=== PATIENT | female | born 1995 | race Caucasian/White ===

== ENCOUNTER 2017-02-24 19:45 | Outpatient (CLI) | payer OTHER ==
[2017-02-24 20:37] LABS: APPEARANCE,URINE CLEAR; BILIRUBIN,URINE NEGATIVE (NEGATIVE); GLUCOSE, URINE NEGATIVE (NEGATIVE); KETONES,URINE NEGATIVE (NEGATIVE); LEUKOCYTE ESTERASE,URINE NEGATIVE (NEGATIVE); NITRITE,URINE NEGATIVE (NEGATIVE); PROTEIN,URINE NEGATIVE (NEGATIVE); URINE SPECIFIC GRAVITY 1.012; UROBILINOGEN,URINE NEGATIVE mg/dL (<2.0)
[2017-02-24 21:13] LABS: URINE BARBITURATES SCREEN NEGATIVE; URINE METHADONE SCREEN NEGATIVE; URINE OPIATES LOW NEGATIVE; URINE PHENCYCLIDINE SCREEN NEGATIVE
--- NOTE | 2017-02-24 22:43 | Non Stress Test Report ---
Non Stress Test Datetime Report Generated by CPN: 02/24/2017 22:43 DEMOGRAPHIC EGA NST: 39.3 INDICATION Indication for Study: Ordered by Provider VITAL SIGNS Temperature - NST: 98.0 Pulse - NST: 105 RESP - NST: 14 NBPSYS NST: 143 NBPDIA NST: 81 MONITORING Monitor Explained: Monitor Explained; Test Explained; Patient Verbalized Understanding Time on Monitor: 02/24/2017 20:05 Time off Monitor: 02/24/2017 21:08 NST Duration: 63 NST INTERVENTIONS NST Interventions: PO Hydration Physician Notified NST: Dr Bernabe BABY A: [id number] BABY A Movement : Present Contraction Frequency : irreg FHR Baseline : 160 Accelerations : 15X15 Decelerations : None Variability : Moderate 6-25bpm NST Review: Meets Criteria for Reactive NST NST Review and Verified By : Paco Martínez RN NST Results: Reactive NST REPORT Report Trigger: Send Report
== END 2017-02-24 22:31 | disposition home or self-care (01) ==
LOC: LC 19:45
PROVIDERS: ATTEND Student in an Organized Health Care Education/Training Program
PROC: 4A1HXCZ Monitoring of Products of Conception, Cardiac Rate, External Approach (ICD-10-PCS; principal; 2017-02-24)
DX: O47.1 False labor at or after 37 completed weeks of gestation (principal); Z3A.39 39 weeks gestation of pregnancy
CPT/HCPCS: 59025; 80307; 81005

== ENCOUNTER 2017-02-25 11:30 | Outpatient (CLI) | payer OTHER ==
[2017-02-25 12:03] LABS: APPEARANCE,URINE SLIGHTLY-CLOUDY; BILIRUBIN,URINE NEGATIVE (NEGATIVE); GLUCOSE, URINE NEGATIVE (NEGATIVE); KETONES,URINE NEGATIVE (NEGATIVE); LEUKOCYTE ESTERASE,URINE NEGATIVE (NEGATIVE); NITRITE,URINE NEGATIVE (NEGATIVE); PROTEIN,URINE NEGATIVE (NEGATIVE); URINE SPECIFIC GRAVITY 1.012; UROBILINOGEN,URINE NEGATIVE mg/dL (<2.0)
[2017-02-25] MEDS ORDERED: HYDROXYZINE PAMOATE 50 MG CAPSULE ONE (12:15)
[2017-02-25 12:33] LABS: URINE BARBITURATES SCREEN NEGATIVE; URINE METHADONE SCREEN NEGATIVE; URINE OPIATES LOW NEGATIVE; URINE PHENCYCLIDINE SCREEN NEGATIVE
== END 2017-02-25 12:20 | disposition home or self-care (01) ==
LOC: LC 11:30
PROVIDERS: ATTEND Obstetrics & Gynecology
PROC: 4A1HXCZ Monitoring of Products of Conception, Cardiac Rate, External Approach (ICD-10-PCS; principal; 2017-02-25)
DX: O47.1 False labor at or after 37 completed weeks of gestation (principal); Z3A.39 39 weeks gestation of pregnancy
CPT/HCPCS: 59025; 80307; 81005

== ENCOUNTER 2017-02-25 17:52 | Inpatient (IN) | payer OTHER ==
--- NOTE | 2017-02-25 18:07 | Non Stress Test Report ---
Non Stress Test Datetime Report Generated by CPN: 02/25/2017 18:06 DEMOGRAPHIC EGA NST: 39.4 INDICATION Indication for Study: Ordered by Provider MONITORING Monitor Explained: Monitor Explained; Test Explained; Patient Verbalized Understanding Time on Monitor: 02/25/2017 11:45 Time off Monitor: 02/25/2017 12:09 NST Duration: 24 NST INTERVENTIONS NST Interventions: None Physician Notified NST: Dr. Tavera BABY A: [id number] BABY A Movement : Present Contraction Frequency : irritability FHR Baseline : 145 Accelerations : 15X15 Decelerations : None Variability : Moderate 6-25bpm NST Review: Meets Criteria for Reactive NST NST Review and Verified By : D Bellavance RNC NST Results: Reactive NST REPORT Report Trigger: Send Report (Annotations: Data stored by [facility] on behalf of user)
--- NOTE | 2017-02-25 19:15 | Non Stress Test Report ---
Non Stress Test Datetime Report Generated by CPN: 02/25/2017 19:14 DEMOGRAPHIC EGA NST: 39.4 INDICATION Indication for Study: Ordered by Provider MONITORING Monitor Explained: Monitor Explained; Test Explained; Patient Verbalized Understanding Time on Monitor: 02/25/2017 18:07 Time off Monitor: 02/25/2017 18:27 NST Duration: 20 NST INTERVENTIONS NST Interventions: None Physician Notified NST: Dr. Tavera BABY A Movement : Present Contraction Frequency : 3-4 FHR Baseline : 145 Accelerations : 15X15 Decelerations : None Variability : Moderate 6-25bpm NST Review: Meets Criteria for Reactive NST NST Review and Verified By : Rashad Bellavasmita RNC NST Results: Reactive NST REPORT Report Trigger: Send Report
[2017-02-25] MEDS ORDERED: MORPHINE SULFATE 10 MG/ML INJ IM ONE (20:00)
[2017-02-25] MEDS ORDERED: MORPHINE SULFATE 10 MG/ML INJ ONE (20:07)
[2017-02-25] MEDS ORDERED: RINGERS SOLUTION,LACTATED 1,000 ML IV PRN (23:15)
[2017-02-25 23:41] LABS: ABSOLUTE BASOPHILS # (AUTO) 0.1 10^3/uL (0.0-0.2); ABSOLUTE EOSINOPHILS # (AUTO) 0.1 10^3/uL (0.0-0.6); ABSOLUTE LYMPHOCYTES (AUTO) 1.7 10^3/uL (0.5-4.7); ABSOLUTE MONOCYTES (AUTO) 0.8 10^3/uL (0.1-1.4); ABSOLUTE NEUT (AUTO) 9.7 10^3/uL (1.7-8.2); BASOPHILS % (AUTO) 0.6 % (0-2); EOSINOPHILS % (AUTO) 0.7 % (0-6); HEMATOCRIT 33.3 % (36.0-47.0); HGB HCT DIFFERENCE -0.3; LYMPHOCYTES % (AUTO) 13.4 % (13-45); MEAN CORPUSCULAR HEMOGLOBIN 27.5 pg (27.0-33.4); MEAN CORPUSCULAR HGB CONC 33.1 g/dL (32.0-36.0); MEAN CORPUSCULAR VOLUME 83 fl (80-97); MONOCYTES % (AUTO) 6.5 % (3-13); RED CELL DISTRIBUTION WIDTH 14.8 % (11.5-14.0); SEGMENTED NEUTROPHILS % (AUTO) 78.8 % (42-78); WHITE BLOOD COUNT 12.4 10^3/uL (4.0-10.5)
[2017-02-25] MEDS: RINGERS SOLUTION,LACTATED 1,000 ML IV PRN ×2 (23:46→23:47)
[2017-02-25] MEDS ORDERED: FENTANYL CITRATE INJ/PF 100 MCG/2 ML AMPUL ONE (23:52)
[2017-02-25] MEDS ORDERED: PHENYLEPHRINE HCL INJ/PF 10 MG/1 ML SDV ONE (23:53)
[2017-02-25] MEDS ORDERED: EPHEDRINE SULFATE INJ 50 MG/1 ML AMPULE ONE (23:53)
[2017-02-25] MEDS ORDERED: BUPIVACAINE HCL 0.25 % INJ/PF (2.5 MG/1 ML) 30 ML VIAL ONE (23:53)
[2017-02-25] MEDS ORDERED: FENTANYL/BUPIVACAINE/NS/PF 200 MCG/100 ML RTUINJ EPI ONE (23:53)
[2017-02-25] MEDS ORDERED: EPHEDRINE SULFATE INJ 50 MG/1 ML AMPULE IV PRN (23:57)
[2017-02-25] MEDS ORDERED: DIPHENHYDRAMINE HCL 50 MG/ML VIAL IV PRN (23:57)
[2017-02-25] MEDS ORDERED: EPHEDRINE SULFATE INJ 50 MG/1 ML AMPULE IV ONE (23:57)
[2017-02-25] MEDS ORDERED: BUPIVACAINE HCL 0.25 % INJ/PF (2.5 MG/1 ML) 30 ML VIAL INFIL ONE (23:57)
[2017-02-25] MEDS ORDERED: FENTANYL/BUPIVACAINE/NS/PF 200 MCG/100 ML RTUINJ EPI PRN (23:57)
[2017-02-25] MEDS ORDERED: BENZOIN/ALOE VERA/STORAX/TOLU TINCTURE 60 ML TP PRN (23:57)
[2017-02-26] MEDS ORDERED: OXYTOCIN/NORMAL SALINE 20 UNIT/1,000 ML RTUINJ ONE (04:18)
[2017-02-26] MEDS ORDERED: MISOPROSTOL 0.2 MG TABLET ONE (04:18)
[2017-02-26] MEDS ORDERED: LIDOCAINE 1% INJ-PF (10 MG/ML) 30 ML SDV ONE (04:18)
[2017-02-26] MEDS ORDERED: OXYTOCIN/NORMAL SALINE 20 UNIT/1,000 ML RTUINJ IV PRN (05:32)
[2017-02-26] MEDS ORDERED: LIDOCAINE 2%/EPINEPHRINE INJ 20 ML VIAL ONE (06:52)
[2017-02-26] MEDS ORDERED: FENTANYL/BUPIVACAINE/NS/PF 0 MCG/0 ML RTUINJ EPI ONE (11:31)
[2017-02-26] MEDS ORDERED: SODIUM BICARBONATE 8.4% INJ 50 MEQ/50 ML DISP.SYRIN ONE (11:44)
[2017-02-26] MEDS ORDERED: PROMETHAZINE HCL INJ 25 MG/1 ML VIAL IV PRN (13:54)
[2017-02-26] MEDS ORDERED: ACETAMINOPHEN 650 MG SUPP.RECT PR PRN (13:54)
[2017-02-26] MEDS ORDERED: ACETAMINOPHEN WITH CODEINE #3 TABLET PO PRN ×2 (13:54)
[2017-02-26] MEDS ORDERED: PROMETHAZINE HCL 25 MG SUPP.RECT PR PRN (13:54)
[2017-02-26] MEDS ORDERED: PROMETHAZINE HCL 25 MG TABLET PO PRN (13:54)
[2017-02-26] MEDS ORDERED: DIPH/PERTUSS(ACELL)/TETANUS VAC/PF 0.5 ML SYR (>=10YO) IM PRN (13:54)
[2017-02-26] MEDS ORDERED: DIPHENHYDRAMINE HCL 25 MG CAPSULE PO PRN (13:54)
[2017-02-26] MEDS ORDERED: NA PHOS,M-B/NA PHOS,DI-BA (ADULT) 133 ML ENEMA PR PRN (13:54)
[2017-02-26] MEDS ORDERED: BENZOCAINE/MENTHOL AEROSOL SPRAY 56 ML TOP PRN (13:54)
[2017-02-26] MEDS ORDERED: GLYCERIN/WITCH HAZEL LEAF 1 EACH MED..PAD TP PRN (13:54)
[2017-02-26] MEDS ORDERED: DIBUCAINE 1% OINTMENT 28 GM TP PRN (13:54)
[2017-02-26] MEDS ORDERED: PSEUDOEPHEDRINE HCL 30 MG TABLET PO PRN (13:54)
[2017-02-26] MEDS ORDERED: OXYTOCIN/NORMAL SALINE 1,000 ML IV PRN (13:54)
[2017-02-26] MEDS ORDERED: ZOLPIDEM TARTRATE 5 MG TABLET PO PRN (13:54)
[2017-02-26] MEDS ORDERED: MEASLES,MUMPS&RUBELLA VACC/PF 0.5 ML VIAL SUBCUT PRN (13:54)
[2017-02-26] MEDS ORDERED: MAGNESIUM HYDROXIDE SUSP 30 ML UDCUP PO PRN (13:54)
--- NOTE | 2017-02-26 16:01 | Admission Physical ---
Datetime Report Generated by CPN: 02/26/2017 16:01 CURRENT ADMISSION Chief Complaint: Uterine Contractions Indication for Induction: Not Applicable Admit Plan: Admit to Unit; Initiate Labor Protocol ALLERGIES Medication Allergies: Yes Medication Allergies: azithromycin (02/25/2017) Medication Allergies: azithromycin (02/24/2017) Medication Allergies: Zithromax Latex: No Latex Allergies OBSTETRICAL HISTORY EDC: 02/28/2017 00:00 : 1 Para: 0 Term: 0 : 0 SAB: 0 IAB: 0 Ectopic: 0 Livin Cesareans: 0 VBACs: 0 Multiple Births: 0 Gestational Diabetes: No Rh Sensitization: No Incompetent Cervix: No MARY: No Infertility: No ART Treatment: No Uterine Anomaly: No IUGR: No Hx Previous C/S: No Macrosomia: No Hx Loss/Stillborn: No PIH: No Hx : No Placenta Previa/Abruption: No Depression/PP Depression: No PTL/PROM: No Post Hemorrhage: No Current Procedures: Ultrasound Obstetrical History Comments: G1: current SEE RECORDS Alcohol: No Marijuana : No Cocaine: No Other Illicit Drugs: Yes Cigarettes: Never Smoker. [id number] MEDICAL HISTORY Diabetes: No Blood Transfusion: No Pulmonary Disease (Asthma, TB): No Breast Disease: No Hypertension: No Ui Programmer Surgery: No Heart Disease: No Hosp/Surgery: No Autoimmune Disorder: No Anesthetic Complications: No Kidney Disease: No Abnormal Pap Smear: No Neuro/Epilepsy: No Psychiatric Disorders: No Other Medical Diseases: No Hepatitis/Liver Disease: No Significant Family History: No Varicosities/Phlebitis: No Trauma/Violence : No Thyroid Dysfunction: Yes Medical History Comments: Hypothyroidism-On sythroid INFECTIOUS HISTORY Gonorrhea: No Genital Herpes: No Chlamydia: No Tuberculosis: No Syphilis: No Hepatitis: No HIV/AIDS Exposure: No Rash or Viral Illness: No HPV: No PHYSICAL EXAM General: Normal HEENT: Normal Neurologic: Normal Thyroid: Deferred Heart: Normal Lungs: Normal Breast: Deferred Back: Normal Abdomen: Normal Genitourinary Exam: Normal Extremities: Normal DTRs: Normal Pelvic Type: Adequate Vital Signs: Reviewed; Within Normal Limits VAGINAL EXAM Dilatation: 4 Effacement: 80 Station: -2 MEMBRANES Membranes: Intact FETUS A EGA: 39.5 Monitoring: External US FHR- Baseline: 140 Variability: Moderate 6-25bpm Accelerations: 15X15 Decelerations: None FHR Category: Category I PLANS FOR LABOR AND DELIVERY Labor and Delivery: None Pain Management: Epidural Feeding Preference: Formula Benefit of Breast Feed Discussed: Yes Circumcision: N/A INFORMED CONSENT Signature: with User ID: [email or web address]
[2017-02-26] MEDS: IBUPROFEN 800 MG TABLET PO SCH ×2 (18:17→21:11)
[2017-02-26] MEDS: DOCUSATE SODIUM 100 MG CAPSULE PO SCH (18:38)
[2017-02-26] MEDS: FERROUS SULFATE 325 MG TABLET PO SCH (18:38)
[2017-02-26] MEDS: FAMOTIDINE 20 MG TABLET PO SCH (21:11)
[2017-02-27] MEDS: IBUPROFEN 800 MG TABLET PO SCH ×3 (06:37→21:05)
[2017-02-27 07:21] LABS: MEAN CORPUSCULAR HEMOGLOBIN 27.3 pg (27.0-33.4); MEAN CORPUSCULAR HGB CONC 33.4 g/dL (32.0-36.0); MEAN CORPUSCULAR VOLUME 82 fl (80-97); RED BLOOD COUNT 3.67 10^6/uL (3.72-5.28); RED CELL DISTRIBUTION WIDTH 14.8 % (11.5-14.0); WHITE BLOOD COUNT 11.8 10^3/uL (4.0-10.5)
[2017-02-27] MEDS: DOCUSATE SODIUM 100 MG CAPSULE PO SCH ×2 (09:25→17:25)
[2017-02-27] MEDS: FAMOTIDINE 20 MG TABLET PO SCH ×2 (09:25→21:05)
[2017-02-27] MEDS: FERROUS SULFATE 325 MG TABLET PO SCH ×2 (09:26→17:25)
[2017-02-27] MEDS: PRENATAL VITAMIN W-O CA NO5/FE FUMARATE/FA CAPSULE PO SCH (09:26)
[2017-02-27] MEDS: SENNOSIDES/DOCUSATE 8.6-50 MG 1 EACH TABLET PO SCH (09:27)
--- NOTE | 2017-02-27 09:44 | PDOC PROGRESS REPORT ---
Subjective-OB Subjective: Post Delivery Day: 1 20 year old. Denies any needs at this time, states lochia is stable, voiding without difficulty, pain well controlled. Physical Exam (OB) Vital Signs: Temp Pulse Resp BP Pulse Ox 97.4 F 93 16 123/73 100 02/27/17 08:15 02/27/17 08:15 02/27/17 08:15 02/27/17 08:15 02/27/17 08:15 Intake & Output 02/26/17 02/27/17 02/28/17 06:59 06:59 06:59 Intake Total 500 Balance 500 Weight 105.09 kg - Lochia Lochia Amount: Small 10-25 ml Lochia Color: Rubra/Red - Abdomen Description: Tender, Soft, Round Hernia Present: No Fundal Description: Firm, Midline Fundal Height: u/u - u/2 Objective-Diagnostic Laboratory: 02/27/17 07:11 02/27/17 07:11 WBC 11.8 H RBC 3.67 L Hgb 10.0 L Hct 30.0 L MCV 82 MCH 27.3 MCHC 33.4 RDW 14.8 H Plt Count 156 Assessment and Plan(PN) - Assessment and Plan (1) Vaginal delivery Is this a current diagnosis for this admission?: YesPlan: routine pp care (2) Acute blood loss anemia Is this a current diagnosis for this admission?: YesPlan: ferrous sulfate increase dietary iron - Time Spent with Patient Time with patient: Less than 15 minutes Critical Time spent with patient: Less than 15 minutes Medications reviewed and adjusted accordingly: Yes - Disposition Anticipated Discharge: Home Within: within 24 hours
--- NOTE | 2017-02-27 17:42 | Delivery Summary ---
Del Sum A-C Datetime Report Generated by CPN: 02/27/2017 17:42 DELIVERY PERSONNEL DELIVERY PERSONNEL: [id number];[id number] DELIVERY PERSONNEL: [id number] DELIVERY PERSONNEL: [id number] DELIVERY PERSONNEL: [id number] Delivery Doctor:: Tatiana Victoria CNM Nurse Microbiology Professor Certified:: Tatiana Victoria CNM Labor and Delivery Nurse:: Jasmine Noe RN Vault Person/LICENSED AUDIOLOGIST: Yecenia Alanis CST Vault Person/LICENSED AUDIOLOGIST: Lulu Contreras CNA II MATERNAL INFORMATION Delivery Anesthesia: Epidural Delivery Anesthesia: Epidural Medications After Delivery: Pitocin Bolus-Please Comment Meds After Delivery Comment: Pitocin 20 units in 1 L NS bolusing per order Estimated Blood Loss (ml): 100 Estimated Blood Loss (ml): 100 Maternal Complications: None Other Maternal Complications: tachycardia Provider Comments: Pt. pushed with much coaching and went on to deliver a viable baby girl in NOÉ position with terminal meconium noted. Baby with spontaneous respiratory effort and cry at . Baby placed on maternal abdomen and cord allowed to stop pulsating and then clamped x2 and cut by FOB. Placenta delivered spontaneously intact in [place] presentation (3vc noted and cord blood obtained) Vaginal and perineal inspection revealed superficial hemostatic lacerations as stated above. Fundus firm at U-1, bleeding stable, mother and baby skin to skin and bonding at this time. LABOR SUMMARY EDC: 02/28/2017 00:00 No. Babies in Womb: 1 Attempted: No Labor Anesthesia: Epidural LABOR INFORMATION Reason for Induction: Not Applicable Onset of Labor: 02/25/2017 23:08 Complete Dilatation: 02/26/2017 09:38 Oxytocin: Augmentation Group B Beta Strep: Negative Antibiotics # of Doses: 0 Antibiotics Time of Last Dose: n/a Name of Antibiotic Given: n/a Steroids Given: None Reason Steroids Not Administered: Not Applicable MEMBRANES Membranes Rupture Method: Artificial Rupture of Membranes: 02/26/2017 06:56 Length of Rupture (hr): 6.82 Amniotic Fluid Color: Clear Amniotic Fluid Amount: Small Amniotic Fluid Odor: Normal STAGES OF LABOR Stage 1 hr: 10 Stage 1 min: 30 Stage 2 hr: 4 Stage 2 min: 7 Stage 3 hr: 0 Stage 3 min: 10 Total Time in Labor hr: 14 Total Time in Labor min: 47 VAGINAL DELIVERY Episiotomy: None Laceration Extension: N/A Laceration Type: None Other Laceration: superficial -hemostatic Laceration Repair: Not Applicable Sponge Count Correct: Yes Sharps Count Correct: Yes CSECTION DELIVERY Primary Indication: N/A Secondary Indication: N/A CSection Incidence: N/A Labor: N/A Elective: N/A CSection Incision: N/A BABY A INFORMATION Delivery Date/Time: 02/26/2017 13:45 Method of Delivery: Vaginal Born in Route : No : N/A Forceps: N/A Vacuum Extraction: N/A Shoulder Dystocia : No PRESENTATION/POSITION BABY A Presentation: Cephalic Presentation: Cephalic Cephalic Presentation: Vertex Vertex Position: Right Occipital Anterior Breech Presentation: N/A PLACENTA INFORMATION BABY A Placenta Delivery Time : 02/26/2017 13:55 Placenta Method of Delivery: Spontaneous Placenta Status: Delivered SCORES BABY A Heart Rate 1 min: >100 bpm Resp Effort 1 min: Good Cry Reflex Irritability 1 min: Cough or Sneeze or Pulls Away Muscle Tone 1 min: Active Motion Color 1 min: Body [place], Extremities Blue Resuscitation Effort 1 min: Tactile Stimulation SCORE 1 MIN: 9 Heart Rate 5 min: >100 bpm Resp Effort 5 min: Good Cry Reflex Irritability 5 min: Cough or Sneeze or Pulls Away Muscle Tone 5 min: Active Motion Color 5 min: Body [place], Extremities Blue Resuscitation Effort 5 min: Tactile Stimulation SCORE 5 MIN: 9 INFANT INFORMATION BABY A Gestational Age at Delivery: 39.5 Gestational Status: Full Term- 39- 40.6 Weeks Infant Outcome : Liveborn Infant Condition : Stable Infant Sex: Female IDENTIFICATION BABY A Verification Date/Time: 02/26/2017 14:29 ID Band Number: [id number] Mother's Name Verified: Yes Infant RN Verifying Infant: MCarola Noe, RN, DCarola Welsh, RN WEIGHT/LENGTH BABY A Infant Birthweight (gm): 4135 Infant Weight (lb): 9 Weight (oz): 2 Length (in): 21.50 Infant Length (cm): 54.61 CORD INFORMATION BABY A No. Cord Vessels: 3 Nuchal Cord : N/A Cord Blood Taken: Yes-For Storage (Mom's Blood type +) Suction: Mouth; Nose ASSESSMENT BABY A Complications: None Physical Findings at Delivery: Molding of the Head; Puncture Wound from Scalp Electrode Infant Respirations: Appears Normal Skin to Skin: Yes Skin to Skin: Yes Skin to Skin Time (min): 45 Skin to Skin Time (min): 45 Under Sheriff/ALS Called : No Care By: Mele Welsh RN Transferred To: Remains with Mother BABY B INFORMATION : N/A SIGNATURES Assignment: Argenis Bernabe MD Signature: with User ID: [email or web address] : with User ID: [email or web address]
[2017-02-28] MEDS: IBUPROFEN 800 MG TABLET PO SCH (06:21)
[2017-02-28 08:36] VITALS: BP 128/74
[2017-02-28] MEDS: SENNOSIDES/DOCUSATE 8.6-50 MG 1 EACH TABLET PO SCH (09:06)
[2017-02-28] MEDS: DOCUSATE SODIUM 100 MG CAPSULE PO SCH (09:06)
[2017-02-28] MEDS: FERROUS SULFATE 325 MG TABLET PO SCH (09:06)
[2017-02-28] MEDS: FAMOTIDINE 20 MG TABLET PO SCH (09:07)
[2017-02-28] MEDS: PRENATAL VITAMIN W-O CA NO5/FE FUMARATE/FA CAPSULE PO SCH (09:07)
--- NOTE | 2017-02-28 09:09 | PDOC DISCHARGE SUMMARY ---
Final Diagnosis Discharge Date: 02/28/17 - Final Diagnosis (1) Vaginal delivery Is this a current diagnosis for this admission?: Yes Discharge Data - Discharge Medication Home Medications: Levothyroxine Sodium [Synthroid] 50 mcg PO DAILY 02/24/17 Vit/Iron Fumarate/FA [ Tablet] 1 tab PO DAILY 02/24/17 Docusate Sodium [Colace 100 mg Capsule] 100 mg PO BID #60 capsule 02/28/17 Ferrous Sulfate [Feosol 325 mg Tablet] 325 mg PO BID #60 tablet 02/28/17 Ibuprofen [Motrin 800 mg Tablet] 800 mg PO Q8 #60 tablet 02/28/17 Gestational Age: 39.5 Reason(s) for Admission: Onset of Labor Procedures: NST Intrapartum Procedure(s): Spontaneous Vaginal Delivery - Data Baby 1 Female at 1 minute: 9 at 5 minutes: 9 Weight: 4135 kg Home with Mother: Yes Complications: No - Diagnosis Test Laboratory: Temp Pulse Resp BP Pulse Ox 98.0 F 76 15 128/74 H 100 02/28/17 08:09 02/28/17 08:09 02/28/17 08:09 02/28/17 08:09 02/28/17 08:09 02/25/17 02/27/17 23:30 07:11 RBC 4.00 3.67 L Hgb 11.0 L 10.0 L Hct 33.3 L 30.0 L - Discharge information/Instructions Discharge Activity: Activity As Tolerated, Pelvic Rest, No tub bath Discharge Diet: Regular Disposition: HOME, SELF-CARE Follow up with: [facility] in: 4, Weeks
== END 2017-02-28 12:20 | disposition home or self-care (01) | DRG 775 ==
LOC: LC 17:52 → LR 23:23 → 2S 02-26 16:00
PROVIDERS: ADMIT Student in an Organized Health Care Education/Training Program; ATTEND Student in an Organized Health Care Education/Training Program
PROC: 10E0XZZ Delivery of Products of Conception, External Approach (ICD-10-PCS; principal; 2017-02-26)
DX: O99.284 Endocrine, nutritional and metabolic diseases complicating childbirth (principal); D62 Acute posthemorrhagic anemia; E03.9 Hypothyroidism, unspecified; O90.81 Anemia of the puerperium; O77.0 Labor and delivery complicated by meconium in amniotic fluid; Z3A.39 39 weeks gestation of pregnancy; Z37.0 Single live birth; O09.33 Supervision of pregnancy with insufficient antenatal care, third trimester
CPT/HCPCS: 36415; 85025; 85027; 86592; 86850; 86900; 86901; 94760; J2270; J2370; J2590; J3010; J3490